=== PATIENT | female | born 1985 | race Asian ===

== ENCOUNTER → 2019-11-10 11:23 | Outpatient (BNVA) | payer OTHER, SELFPAY | PROVIDERS: Family Provider Family Medicine; Visit Provider Nurse Practitioner Family | DX: J06.9 Acute upper respiratory infection, unspecified (principal); Z20.828 Contact with and (suspected) exposure to other viral communicable diseases | CPT/HCPCS: 87635 ==

== ENCOUNTER → 2020-02-19 15:00 | Outpatient (BNVA) | payer OTHER, SELFPAY | PROVIDERS: Family Provider Family Medicine; Visit Provider Obstetrics & Gynecology | DX: N91.5 Oligomenorrhea, unspecified (principal) | CPT/HCPCS: 82670; 83001; 84146; 84402; 84443 ==

== ENCOUNTER → 2020-04-01 10:11 | Outpatient (BNVA) | payer OTHER, SELFPAY | PROVIDERS: Family Provider Family Medicine; Visit Provider Obstetrics & Gynecology | DX: Z12.4 Encounter for screening for malignant neoplasm of cervix (principal); N89.8 Other specified noninflammatory disorders of vagina; E28.2 Polycystic ovarian syndrome; N76.0 Acute vaginitis; B96.89 Other specified bacterial agents as the cause of diseases classified elsewhere; B37.3 Candidiasis of vulva and vagina | CPT/HCPCS: 87210; 88175 ==

== ENCOUNTER → 2021-04-03 16:15 | Outpatient (BNVA) | payer OTHER, SELFPAY | PROVIDERS: Family Provider Family Medicine; Visit Provider Obstetrics & Gynecology | DX: N92.6 Irregular menstruation, unspecified (principal) | CPT/HCPCS: 83036; 83525; 84443; 85025; 88305 ==

== ENCOUNTER → 2021-04-28 13:03 | Outpatient (BNVA) | payer OTHER, SELFPAY | PROVIDERS: Family Provider Family Medicine; Visit Provider Obstetrics & Gynecology | DX: N93.9 Abnormal uterine and vaginal bleeding, unspecified (principal); R93.89 Abnormal findings on diagnostic imaging of other specified body structures; N85.9 Noninflammatory disorder of uterus, unspecified | CPT/HCPCS: 76830 ==

== ENCOUNTER → 2021-05-05 09:30 | Outpatient (BNVA) | payer OTHER, SELFPAY | PROVIDERS: Family Provider Family Medicine; Visit Provider Obstetrics & Gynecology | DX: N93.9 Abnormal uterine and vaginal bleeding, unspecified (principal); R93.89 Abnormal findings on diagnostic imaging of other specified body structures; Z20.822 Contact with and (suspected) exposure to COVID-19; Z01.818 Encounter for other preprocedural examination | CPT/HCPCS: 87635 ==

== ENCOUNTER 2021-05-09 09:23 | Day surgery (SDC) | payer OTHER, SELFPAY ==
[2021-05-09] VITALS (9 sets, daily range): BP systolic 114–140; BP diastolic 70–97; PULSE 72–110; RESP 16–23; TEMP 36.2–36.9; O2SAT 92–100
[2021-05-09] MEDS: ketorolac 30 mg/mL INJ IVP (09:49)
[2021-05-09] MEDS: sodium chloride 0.9% 1,000 ML 30 ML IV (09:49)
--- NOTE | 2021-05-09 09:53 | ANES.PREANE2 ---
Pre-Anesthetic Assessment Height/Weight: Height 1.5 m Temp Pulse Resp BP Pulse Ox 98.5 F 105 H 16 140/96 98 05/09/21 09:38 05/09/21 09:38 05/09/21 09:38 05/09/21 09:38 05/09/21 09:38 Preop Diagnosis: thickened endometrium, AUB Operation Date: 05/09/21 11:15 Proposed Procedures p Hysteroscopy w/ Myosure(Not Applicable) - Renea Arthur MD s Dilation And Curettage (D&C)(Not Applicable) - Renea Arthur MD Familial anesthetic complications: none Was Beta Jamie taken within 24 hours: N/A Was Clonidine taken within 24 hours: N/A Last intake: Intake Last Liquid Date 05/08/21 Last Liquid Time 23:00 Last Solid Date 05/08/21 Last Solid Time 19:00 Social No alcohol and No tobacco Exam alert, oriented x 3, clear to auscultation bilaterally and regular rate & rhythm Airway Mallampati: Class IV Dentition: full GI Gastroesophageal Reflux Disease Anesthetic Plan ASA status: 2 Anesthesia: General Risk of > 500 ml blood loss (7ml/kg in children): No Medications/Allergies Home Medications Medication Instructions Recorded Confirmed Last Taken Type esomeprazole magnesium 20 mg 20 mg PO DAILY PRN 04/27/19 05/09/21 05/07/21 History capsule,delayed release (Nexium) diphenhydramine HCl 25 mg capsule 25 mg PO Q8H PRN cap 01/21/20 05/09/21 Unknown History (Benadryl) melatonin 1 tab PO .hs PRN 01/21/20 05/09/21 Unknown History ibuprofen 200 mg tablet (IBU-200) 200 mg PO Q6H PRN 02/19/20 05/09/21 05/08/21 History loratadine 10 mg tablet (Claritin) 10 mg PO Q24H PRN tab 04/01/20 05/09/21 Unknown History levonorgestrel-ethinyl estradiol 1 tab PO DAILY #28 tab 04/06/21 05/09/21 05/08/21 Rx 0.1 mg-20 mcg tablet (Aviane) cranberry 400 mg capsule 400 mg PO DAILY 05/01/21 05/09/21 05/08/21 History Allergies Allergy/AdvReac Type Severity Reaction Status Date / Time No Known Allergies Allergy Verified 05/09/21 09:35 Current Medications Generic Name Dose Route Start Last Admin Trade Name Aramisq PRN Reason Stop Dose Admin Sodium Chloride 1,000 mls @ 30 mls/hr 05/09/21 09:30 05/09/21 09:49 Sodium Chloride 0.9% IV 05/10/21 09:29 30 mls/hr .Q24H DEREK Administration PFSH Anesthesia Medical History Gastroesophageal reflux Muscle tension headache Right ovarian cyst 03/19/2016: Possible small dermoid in right ovary Uterine fibroid 03/19/2016: Transvaginal ultrasound showing 1.7 x 1.4 x 1.3 cm intramural, posterior, fundal uterine fibroid Surgical History No history of previous surgery Family History Father Diabetes CAD (coronary artery disease) Hypertension Family/Other Diabetes Multiple family members Mother Hyperlipidemia Hypertension Social History Smoking and tobacco status: never smoked Alcohol intake: never Female Reproductive History Date of last menstrual period: 05/04/21 Data Anesthesia Cardiac Studies: No Data to Display
[2021-05-09 10:06] LABS: Basophils # 0.1 10^3/uL (0.0-0.1); Basophils % 1.8 %; Eosinophils # 0.1 10^3/uL (0.0-0.8); Eosinophils % 2.5 %; Lymphocytes # 2.3 10^3/uL (0.8-4.8); Lymphocytes % 40.8 %; Mean Corpuscular Hemoglobin 22.8 pg (28.0-34.0); Mean Corpuscular Volume 73.6 fl (81-99); Mean Platelet Volume 8.9 fL (7.4-10.4); Monocytes # 0.3 10^3/uL (0.2-0.9); Monocytes % 5.8 %; Neutrophils # 2.71 10^3/uL (1.8-7.7); Neutrophils % 48.9 %; Nucleated Red Blood Cells % 0 %; Platelet Count 353 10^3/cmm (130-400); Red Blood Count 3.94 10^6/uL (4.1-5.3); Red Cell Distribution Width 17.2 % (12.1-15.1); White Blood Count 5.5 10^3/uL (4.0-10.0)
--- NOTE | 2021-05-09 10:17 | W.PM.OPSUD ---
Surgery/Procedure H&P Update DATE OF PROCEDURE: May 09, 2021 DATE H&P PERFORMED: 05/04/21 H&P UPDATE INFORMATION: I have reviewed H&P completed within last 30 days, I have examined patient prior to procedure and No changes to prior documentation PREOP DIAGNOSIS: thickened endometrium, AUB PLANNED PROCEDURE: Operation Date: 05/09/21 11:15 Proposed Procedures p Hysteroscopy w/ Myosure(Not Applicable) - Renea Arthur MD s Dilation And Curettage (D&C)(Not Applicable) - Renea Arthur MD Related Problem List Diagnoses (1) Thickened endometrium: (2) Abnormal uterine bleeding: (3) Uterine fibroid:
[2021-05-09 10:25] LABS: OR HCG Qualitative Urine Negative (Negative)
--- NOTE | 2021-05-09 11:19 | PM.OP ---
Operative Report Date of procedure: May 09, 2021 Pre-op diagnosis: Preop Diagnosis thickened endometrium, AUB Post-op diagnosis: same Post-op findings: excessive tissue with underlying fibroids Procedure done: hysteroscopy, dilation and curettage with myosure Specimens removed/disposition: endometrial curettings to pathology Surgeon: Renea Arthur Anesthesia: General Estimated blood loss (mL): 20 IV fluids (mL): 500 Complications: none Findings: 8 week sized uterus with numerous fibroids Condition: stable Disposition: PACU Procedure: The patient was taken to the operating room where monitored anesthesia was administered and to be adequate. She was prepped and draped in the normal sterile fashion in the dorsal lithotomy position in [facility]. A weighted speculum was placed into the vagina and the anterior lip of the cervix grasped with a single-tooth tenaculum. The uterus was sounded to 8 cm. The cervix was dilated to 16 [place]. The hysteroscope was advanced into the endometrial cavity. There was excessive tissue and fibroids visualized. The MyoSure device was activated and the tissue was removed. Pictures were taken pre and post procedure. All instruments were removed. The patient tolerated the procedure well. Sponge lap and needle counts were correct x3. She was taken to the recovery room in stable condition.
--- NOTE | 2021-05-09 11:21 | PM.DCS ---
Discharge Providers Date of Admission: 05/09/21 Date of Discharge: May 09, 2021 Attending Provider at Admission: Renea Arthur MD Attending Provider at Discharge: Renea Arthur MD Primary Care Provider: Johnny Haskins MD Diagnoses at Discharge Discharge Diagnosis (1) Thickened endometrium: Status: Acute (2) Abnormal uterine bleeding: Status: Acute (3) Uterine fibroid: Status: Acute Permanent problem details: 03/19/2016: Transvaginal ultrasound showing 1.7 x 1.4 x 1.3 cm intramural, posterior, fundal uterine fibroid Reason for Visit Reason for Visit: abnormal uterine bleeding, thickened endometrium Hospital Course Hospital Course The patient was admitted for surgery. She did well postoperatively and was ready for discharge Discharge Data Studies Completed and Pending Pending at discharge Category Date Time Status ES surgery / GI images Routine Exams 05/09/21 10:20 Taken Pathology: Surgical [PTH] Routine Pth 05/09/21 11:19 Ordered Laboratory Results WBC 5.5 10^3/uL (4.0-10.0) 05/09/21 09:45 RBC 3.94 10^6/uL (4.1-5.3) L 05/09/21 09:45 Hgb 9.0 g/dL (11.5-15.3) L 05/09/21 09:45 Hct 29.0 % (37.0-47.0) L 05/09/21 09:45 MCV 73.6 fl (81-99) L 05/09/21 09:45 MCH 22.8 pg (28.0-34.0) L 05/09/21 09:45 MCHC 31.0 g/dL (30.0-36.0) 05/09/21 09:45 RDW 17.2 % (12.1-15.1) H 05/09/21 09:45 Plt Count 353 10^3/cmm (130-400) 05/09/21 09:45 MPV 8.9 fL (7.4-10.4) 05/09/21 09:45 Neut % (Auto) 48.9 % 05/09/21 09:45 Lymph % (Auto) 40.8 % 05/09/21 09:45 [place] % (Auto) 5.8 % 05/09/21 09:45 Eos % (Auto) 2.5 % 05/09/21 09:45 Baso % (Auto) 1.8 % 05/09/21 09:45 Neut # (Auto) 2.71 10^3/uL (1.8-7.7) 05/09/21 09:45 Lymph # (Auto) 2.3 10^3/uL (0.8-4.8) 05/09/21 09:45 [place] # (Auto) 0.3 10^3/uL (0.2-0.9) 05/09/21 09:45 Eos # (Auto) 0.1 10^3/uL (0.0-0.8) 05/09/21 09:45 Baso # (Auto) 0.1 10^3/uL (0.0-0.1) 05/09/21 09:45 Nucleated RBC % (auto) 0 % 05/09/21 09:45 Nucleated RBCs # 0.0 /100WBC 05/09/21 09:45 Urine HCG, Qual Negative (Negative) 05/09/21 09:45 Vitals Last Vital Signs Temp 98.5 F 05/09/21 09:38 Pulse 105 H 05/09/21 09:38 Resp 16 05/09/21 09:38 BP 140/96 05/09/21 09:38 Pulse Ox 98 05/09/21 09:38 Discharge Plan Discharge Patient Disposition: Home Condition: Stable Prescriptions: Continued esomeprazole magnesium [Nexium] 20 mg capsule,delayed release(DR/EC) 20 mg PO DAILY PRN (Reason: Acid Reflux) 0RF loratadine [Claritin] 10 mg tablet 10 mg PO Q24H PRN (Reason: Allergy Symptoms) 0RF ibuprofen [IBU-200] 200 mg tablet 200 mg PO Q6H PRN (Reason: Pain) 0RF cranberry 400 mg capsule 400 mg PO DAILY 0RF Rx Instructions: administer with a meal diphenhydramine HCl [Benadryl] 25 mg capsule 25 mg PO Q8H PRN (Reason: Itching) 0RF melatonin 1 tab PO .hs PRN (Reason: Sleep) 0RF levonorgestrel-ethinyl estrad [Aviane] 0.1-20 mg-mcg tablet 1 tab PO DAILY Qty: 28 12RF Discharge Orders: Discharge Order (Routine); Ordered 05/09/21 Ordered By: Renea Arthur Discharge Attestations Time Spent in Discharge Care*: less than 30 min Quality Metrics Clinical Quality Measures [ No reported AMI, CVA or VTE this stay] Coding Level of Care Code Acute Chg FW DC note Diagnoses Thickened endometrium R93.89 Abnormal uterine bleeding N93.9 Uterine fibroid D25.9
--- NOTE | 2021-05-09 12:52 | ANE.PACU2 ---
Inpatient post-anesthesia follow up: Airway intact: Yes Vital signs: Temperature 97.2 F Pulse Rate 78 Respiratory Rate 16 Blood Pressure 127/97 Pulse Oximetry 98 Oxygen Delivery Me thod Room Air Oxygen Flow Rate 6 Fraction of Inspir ed Oxygen Hydration adequate: Yes Nausea and vomiting: No Pain level: 2 Mental status: Baseline
== END 2021-05-09 12:14 | disposition home or self-care (01) ==
PROVIDERS: Anesthesiology; PCP Family Medicine Adult Medicine; Visit Provider Obstetrics & Gynecology
PROC: 0UDB8ZZ Extraction of Endometrium, Via Natural or Artificial Opening Endoscopic (ICD-10-PCS; CPT 58558; principal; 2021-05-09 11:05)
PROC: (CPT 58120; 2021-05-09 11:05)
DX: R93.89 Abnormal findings on diagnostic imaging of other specified body structures (principal); N93.9 Abnormal uterine and vaginal bleeding, unspecified; D25.9 Leiomyoma of uterus, unspecified; K21.9 Gastro-esophageal reflux disease without esophagitis
CPT/HCPCS: 58558; 36415; 84703; 85025; 88305; 96374; J1100; J1200; J1885; J2250; J2405; J3010; J7030

== ENCOUNTER → 2021-05-15 14:48 | Outpatient (BNVA) | payer OTHER, SELFPAY | PROVIDERS: PCP Family Medicine Adult Medicine; Visit Provider Obstetrics & Gynecology | DX: N93.9 Abnormal uterine and vaginal bleeding, unspecified (principal) | CPT/HCPCS: 85025 ==

== ENCOUNTER → 2022-07-24 18:00 | Outpatient (BNVA) | payer OTHER, SELFPAY | PROVIDERS: PCP Family Medicine Adult Medicine; Visit Provider Emergency Medicine | DX: R05.9 Cough, unspecified (principal) | CPT/HCPCS: 87426 ==

== ENCOUNTER → 2023-04-10 17:29 | Outpatient (BNVA) | payer OTHER, SELFPAY | PROVIDERS: PCP Family Medicine Adult Medicine; Visit Provider Nurse Practitioner | DX: R39.9 Unspecified symptoms and signs involving the genitourinary system (principal) | CPT/HCPCS: 81000 ==

== ENCOUNTER → 2023-04-24 08:22 | Outpatient (BNVA) | payer OTHER, SELFPAY | PROVIDERS: PCP Family Medicine Adult Medicine; Visit Provider Nurse Practitioner Women's Health | DX: N92.6 Irregular menstruation, unspecified (principal) | CPT/HCPCS: 81025 ==

== ENCOUNTER → 2023-05-07 13:21 | Outpatient (BNVA) | payer OTHER, SELFPAY | PROVIDERS: PCP Family Medicine Adult Medicine; Visit Provider Nurse Practitioner Women's Health | DX: Z34.90 Encounter for supervision of normal pregnancy, unspecified, unspecified trimester (principal) | CPT/HCPCS: 76801; 80307; 84315; 85025; 86592; 86762; 86803; 86850; 86900; 87086; 87340; 87491; 87591; 87806 ==

== ENCOUNTER → 2023-06-10 07:58 | Outpatient (BNVA) | payer OTHER, SELFPAY | PROVIDERS: PCP Family Medicine Adult Medicine; Visit Provider Nurse Practitioner Women's Health | DX: Z34.90 Encounter for supervision of normal pregnancy, unspecified, unspecified trimester (principal) | CPT/HCPCS: 82105; 82950; 84315 ==

== ENCOUNTER → 2023-06-14 08:15 | Outpatient (BNVA) | payer OTHER, SELFPAY | PROVIDERS: PCP Family Medicine Adult Medicine; Visit Provider Obstetrics & Gynecology | DX: Z34.02 Encounter for supervision of normal first pregnancy, second trimester (principal); Z3A.16 16 weeks gestation of pregnancy | CPT/HCPCS: 82951; 82952 ==

== ENCOUNTER → 2023-07-09 14:23 | Outpatient (BNVA) | payer OTHER, SELFPAY | PROVIDERS: PCP Family Medicine Adult Medicine; Visit Provider Obstetrics & Gynecology | DX: Z36.9 Encounter for antenatal screening, unspecified (principal) | CPT/HCPCS: 76805 ==

== ENCOUNTER → 2024-07-15 13:22 | Outpatient (BNVA) | payer OTHER, SELFPAY | PROVIDERS: PCP Family Medicine; Visit Provider Obstetrics & Gynecology | DX: D25.9 Leiomyoma of uterus, unspecified (principal) | CPT/HCPCS: 76830 ==

== ENCOUNTER → 2025-01-18 15:04 | Outpatient (BNVA) | payer OTHER, SELFPAY | PROVIDERS: PCP Family Medicine; Visit Provider Obstetrics & Gynecology | DX: N93.9 Abnormal uterine and vaginal bleeding, unspecified (principal) | CPT/HCPCS: 87624; 88305 ==